=== PATIENT | female | born 1990 | race Two or more races ===

== ENCOUNTER 2016-05-01 22:18 | Emergency (ER) | payer OTHER ==
[~2016-05-01] VITALS: Ht 154.9 cm; Wt 108.9 kg
--- NOTE | 2016-05-01 22:33 | PHYS DOC ---
Past Medical History Past Medical History: Anxiety, Migraines Past Surgical History: No Surgical History Alcohol Use: None Drug Use: None Adult General Chief Complaint Chief Complaint: MULTIPLE COMPLAINTS HPI HPI Patient is a 26 year old female who presents with multiple complaints. Patient reports that since yesterday she has been having a migraine. She reports throbbing pain worse on the R side of her head that is worse with bright lights. Has h/o similar migraines in past. She has tried sumatriptan at home with insufficient relief. In addition, she reports pain and swelling in her R axilla that started on ; no clear inciting or mitigating factors. No prior similar episodes for this. No drainage from site. No fever. Review of Systems Review of Systems Constitutional: Denies fever or chills Eyes: Denies change in visual acuity or eye pain HENT: Denies nasal congestion or sore throat Respiratory: Denies cough or shortness of breath Cardiovascular: Denies chest pain GI: Denies abdominal pain, nausea, vomiting, bloody stools or diarrhea : Denies dysuria or hematuria Musculoskeletal: Pain/swelling in R axilla Integument: Denies rash or skin lesions Neurologic: Migraine headache. Denies focal weakness or sensory changes Current Medications Current Medications Current Medications Medications (Trade) Dose Ordered Sig/Faina Start Time Stop Time Status Last Admin Dose Admin Acetaminophen/ Hydrocodone Bitart (Lortab 5/325) 1 tab 1X ONCE 05/01/16 23:45 05/01/16 23:46 DC 05/01/16 23:43 1 TAB Diphenhydramine HCl (Benadryl) 25 mg 1X ONCE 05/01/16 22:45 05/01/16 22:46 DC 05/01/16 23:33 25 MG Ketorolac Tromethamine (Toradol) 15 mg 1X ONCE 05/01/16 22:45 05/01/16 22:46 DC 05/01/16 23:31 15 MG Lidocaine/Sodium Bicarbonate (Buffered Lidocaine 1%) 20 ml 1X ONCE 05/01/16 22:45 05/01/16 22:46 DC 05/01/16 23:06 20 ML Prochlorperazine Edisylate (Compazine) 10 mg 1X ONCE 05/01/16 22:45 05/01/16 22:46 DC 05/01/16 23:35 10 MG Sodium Chloride (Iv Sodium Chloride 0.9% 1000ml Bag) 1,000 ml @ 1,000 mls/hr Q1H 05/01/16 22:45 05/01/16 23:44 DC 05/01/16 23:00 1,000 MLS/HR Allergies Allergies Allergies Coded Allergies Type Severity Reaction Last Updated Verified No Known Drug Allergies 07/24/13 No Physical Exam Physical Exam Constitutional: Well developed, well nourished, no acute distress, non-toxic appearance HENT: Normocephalic, atraumatic, bilateral external ears normal Eyes: PERRL, EOMI, conjunctiva normal, no discharge Neck: Normal range of motion, no stridor Cardiovascular: Heart rate normal, regular rhythm, no murmur Lungs & Thorax: Bilateral breath sounds clear to auscultation Abdomen: Bowel sounds normal, soft, non-distended, no TTP Skin: Warm, dry, no erythema, no rash Extremities: No obvious deformity, no edema. Swelling, TTP in R axilla; no drainage, no erythema Neurologic: Alert and oriented X 3, GCS 15, CN II-XII grossly intact, strength intact and symmetrical throughout, sensation to light touch intact throughout Current Patient Data Vital Signs Vital Signs Date Time Temp Pulse Resp B/P Pulse Ox O2 Delivery O2 Flow Rate FiO2 05/01/16 23:43 16 99 Room Air 05/01/16 22:26 98.4 104 157/70 98.4 Lab Values Laboratory Tests Test 05/01/16 23:26 Urine Test Negative (NEG) EKG EKG [] Radiology/Procedures Radiology/Procedures [] Course & Med Decision Making Course & Med Decision Making Pertinent Labs and Imaging studies reviewed. (See chart for details) Patient is 26 year old female who presents with migraine and pain in R axilla. Will give migraine cocktail for relief of MCGILL. R axilla pain appears due to hidradenitis. Urine preg screen ordered. As no drainage from axilla and no prior episodes, will only attempt needle aspiration due to concern for cosmesis if I&D attempted with scalpel. I was unable to aspirate significant fluid from the site; therefore will take conservative approach at this time and will treat with warm compresses, abx, pain meds. Patient given instructions for follow up. She does report complete resolution of her migraine after IVF and migraine cocktail. Patient discharged home with rx for abx and pain meds, instructions for follow up, return precautions. Dragon Disclaimer Dragon Disclaimer This electronic medical record was generated, in whole or in part, using a voice recognition dictation system. Departure Departure Impression: Primary Impression: Migraine Additional Impression: Hidradenitis axillaris Disposition: HOME, SELF-CARE Condition: STABLE Referrals: NON,STAFF (PCP) Patient Instructions: Hidradenitis Suppurativa, Sweat Gland Abscess, Migraine Headache Additional Instructions: Thank you for allowing us to provide care today in the Emergency Department. Take the provided medication as directed. Use caution when taking this medication as it can make you drowsy. Use warm compresses on your underarm several times per day as we discussed. Schedule a follow up appointment with your primary care doctor. Return promptly to the Emergency Department if you develop any new or concerning symptoms. Scripts Amoxicillin/Potassium Clav (Augmentin 875-125 Tablet)1 Each Tablet1 Tab PO BID # 14 TAB Prov:CONNIE CHURCH MD 05/02/16 Tramadol Hcl 50 Mg [id number] Mg PO Q6H PRN PAIN #15 TAB Prov:CONNIE CHURCH MD 05/02/16 Problem Qualifiers CONNIE CHURCH MD May 01, 2016 22:33
[2016-05-01] MEDS ORDERED: DIPHENHYDRAMINE 50 MG/ML VIAL IVP ONE (22:45)
[2016-05-01] MEDS ORDERED: LIDOCAINE 1% / SOD BICARB 8.4% 20 ML VIAL. IJ ONE (22:45)
[2016-05-01] MEDS ORDERED: IV NORMAL SALINE 1000ML BAG 1,000 ML IV SCH (22:45)
[2016-05-01] MEDS ORDERED: KETOROLAC 15 MG/ML VIAL. IV ONE (22:45)
[2016-05-01] MEDS ORDERED: PROCHLORPERAZINE 10 MG/2 ML VIAL. IV ONE (22:45)
[2016-05-01 23:31] LABS: NEG OBC UR NEG; POS OBC UR POS
[2016-05-01] MEDS ORDERED: HYDROCODONE/APAP 5/325MG TABLET. PO ONE (23:45)
[2016-05-02] MEDS ORDERED: AMOX1TAB61 PO (00:11)
[2016-05-02] MEDS ORDERED: TRAM50TA PO (00:11)
[2016-05-02 00:31] VITALS: BP 113/53
== END 2016-05-02 00:40 | disposition home or self-care (01) ==
LOC: ER 22:18
DX: G43.909 Migraine, unspecified, not intractable, without status migrainosus (principal); L73.2 Hidradenitis suppurativa; F41.9 Anxiety disorder, unspecified
CPT/HCPCS: 10021; 81025; 96361; 96374; 96375; 99284; J0780; J1200; J1885; J7030

== ENCOUNTER → 2016-05-19 | Outpatient (CLI) | payer OTHER ==
[2016-05-02 00:31] VITALS: BP 113/53
[~2016-05-19] MED LIST: AMOX1TAB61 PO; TRAM50TA PO
[2016-05-19 09:24] LABS: BASO % 1 % (0-3); EOS % 1 % (0-3); HEMATOCRIT 42.1 % (36.0-47.0); HEMOGLOBIN 13.8 g/dL (12.0-15.5); LYMPH # 2.6 x10^3/uL (1.0-4.8); LYMPH % 28 % (24-48); MEAN CORPUSCULAR HEMOGLOBIN 28 pg (25-35); MEAN CORPUSCULAR HGB CONC 33 g/dL (31-37); MEAN CORPUSCULAR VOLUME 85 fL (79-100); MONO % 6 % (0-9); NEUT % 64 % (31-73); PLATELET COUNT 285 x10^3/uL (140-400); RED BLOOD COUNT 4.96 x10^6/uL (3.50-5.40); RED CELL DISTRIBUTION WIDTH 13.5 % (11.5-14.5); WHITE BLOOD COUNT 9.2 x10^3/uL (4.0-11.0)
[2016-05-19 10:01] LABS: ALBUMIN 3.5 g/dL (3.4-5.0); ALBUMIN/GLOBULIN RATIO 0.8 (1.0-1.7); CALCIUM 8.9 mg/dL (8.5-10.1); CREATININE 0.7 mg/dL (0.6-1.0); TOTAL PROTEIN 8.1 g/dL (6.4-8.2)
[2016-05-19 10:02] LABS: GFR 102.8; POTASSIUM 4.2 mmol/L (3.5-5.1); TOTAL BILIRUBIN 0.2 mg/dL (0.2-1.0)
[2016-05-19 18:11] LABS: PROLACTIN 10.6 ng/mL (4.8-23.3)
[2016-05-22 11:14] LABS: % FREE TESTOSTERONE 2.59 % (0.50-2.80); TESTOSTERONE FREE 0.67 ng/dL (0.10-0.85); TESTOSTERONE TOTAL 26 ng/dL (8-48)
== END | disposition home or self-care (01) ==
LOC: LAB 08:58
PROVIDERS: ATTEND Specialist
DX: N93.9 Abnormal uterine and vaginal bleeding, unspecified (principal)
CPT/HCPCS: 36415; 80053; 83001; 83002; 83036; 84146; 84402; 84403; 84443; 85027

== ENCOUNTER 2016-06-02 09:03 | Day surgery (SDC) | payer OTHER ==
[~2016-06-02 09:03] MED LIST changes: +FENTANYL PF 100 MCG/2 ML VIAL. IV PRN; +HYDROMORPHONE 2 MG/ML VIAL. IV PRN; +IV RINGERS,LACTATED 1000ML 1,000 ML IV SCH; +LIDOCAINE 1% 1 ML SYRINGE. ID PRN; +LORA0.5T PO; +MORPHINE SULFATE 2 MG/ML DISP.SYRIN. IV PRN; +ONDANSETRON PF 4 MG/2 ML VIAL. IV PRN; +PROCHLORPERAZINE 10 MG/2 ML VIAL. IV PRN
[2016-06-02] MEDS ORDERED: CEFAZOLIN 2GM PREMIX 50 ML IV PRN (10:15)
[2016-06-02] MEDS ORDERED: DEXAMETHASONE SOD PHOS 20 MG/5 ML VIAL. ONE (10:20)
[2016-06-02] MEDS ORDERED: PROPOFOL 20 ML IV ONE (10:20)
[2016-06-02] MEDS ORDERED: MIDAZOLAM HCL 2 MG/2 ML VIAL. ONE (10:21)
[2016-06-02] MEDS ORDERED: ONDANSETRON PF 4 MG/2 ML VIAL. ONE (10:21)
[2016-06-02] MEDS ORDERED: LIDOCAINE 2% 100 MG/5 ML DISP.SYRIN. ONE (10:21)
[2016-06-02] MEDS ORDERED: FENTANYL PF 250 MCG/5 ML VIAL. ONE (10:21)
[2016-06-02] MEDS ORDERED: ROCURONIUM 50 MG/5 ML VIAL. ONE (10:22)
--- NOTE | 2016-06-02 10:42 | PDOC1 ---
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 unremitting to OCP and NSAIDS Past Medical History Cardiovascular: No pertinent hx Pulmonary: No pertinent hx GI: No pertinent hx Heme/Onc: No pertinent hx Hepatobiliary: No pertinent hx Psych: No pertinent hx Infectious disease: No pertinent hx ENT: No pertinent hx Renal/: No pertinent hx Endocrine: No pertinent hx Dermatology: No pertinent hx Grav: 2 Para: 0 Social History Smoke: No ALCOHOL: none Drugs: None Current Medications Current Medications Current Medications Ondansetron HCl (Zofran) 4 mg PRN Q6HRS PRN IV Nausea; Start 06/02/16 at 07:00; Stop 06/02/16 at 23:00 Fentanyl Citrate (Fentanyl 2ml Vial) 25 mcg PRN Q5MIN PRN IV MILD PAIN; Start 06/02/16 at 07:00; Stop 06/02/16 at 23:00 Fentanyl Citrate (Fentanyl 2ml Vial) 50 mcg PRN Q5MIN PRN IV MODERATE PAIN; Start 06/02/16 at 07:00; Stop 06/02/16 at 23:00 Morphine Sulfate 1 mg 1 mg PRN Q10MIN PRN IV SEVERE PAIN; Start 06/02/16 at 07: 00; Stop 06/02/16 at 23:00 Lactated Ringer's (Iv Lactated Ringers) 1,000 ml @ 0 mls/hr Q0M IV ; Start 06/02 at 07:00; Stop 06/02/16 at 18:59 Lidocaine HCl 2 ml 1X PRN PRN ID IV START; Start 06/02/16 at 07:00; Stop at 23:00 Hydromorphone HCl (Dilaudid) 0.5 mg PRN Q10MIN PRN IV SEVERE PAIN, Second choice; Start 06/02/16 at 07:00; Stop 06/02/16 at 23:00 Prochlorperazine Edisylate 5 mg 5 mg PACU PRN PRN IV NAUSEA; Start 06/02/16 at 07:00; Stop 06/02/16 at 23:00 Cefazolin Sodium/ Dextrose 50 ml @ 100 mls/hr 1X PERIOP PRN IV SEE COMMENTS; Start 06/02/16 at 10:15 Propofol (Diprivan) 20 ml @ As Directed STK-MED ONCE IV ; Start 06/02/16 at 10:20 ; Stop 06/02/16 at 10:21; Status DC Dexamethasone Sodium Phosphate (Decadron) 20 mg STK-MED ONCE .ROUTE ; Start 06/02 at 10:20; Stop 06/02/16 at 10:21; Status DC Ondansetron HCl (Zofran) 4 mg STK-MED ONCE .ROUTE ; Start 06/02/16 at 10:21; Stop 06/02/16 at 10:22; Status DC Lidocaine HCl 100 mg STK-MED ONCE .ROUTE ; Start 06/02/16 at 10:21; Stop 06/02/16 at 10:22; Status DC Midazolam HCl (Versed) 2 mg STK-MED ONCE .ROUTE ; Start 06/02/16 at 10:21; Stop 06/02/16 at 10:22; Status DC Fentanyl Citrate (Fentanyl 5ml Vial) 250 mcg STK-MED ONCE .ROUTE ; Start at 10:21; Stop 06/02/16 at 10:22; Status DC Rocuronium [place] (Zemuron) 50 mg STK-MED ONCE .ROUTE ; Start 06/02/16 at 10:22 ; Stop 06/02/16 at 10:23; Status DC Active Scripts Active Reported Lorazepam 0.5 Mg Tablet 0.5 Mg PO PRN PRN Allergies Allergies: Coded Allergies: No Known Drug Allergies (Unverified , 06/02/16) ROS Gastrointestinal: Yes Nausea Physical Exam General: Alert, Oriented X3, Cooperative, No acute distress HEENT: PERRLA Lungs: Clear to auscultation, Normal air movement Heart: RRR Breasts: Normal, Rt breast nml w/o mass, Lt breast nml w/o mass, Nipples normal Abdomen: Soft, Other (superpubic TTP) Rectal Exam: deferred PELVIC: Nml ext genitalia, Nml ext vulva, Nml ext vagina, Nml ext cervic, Tenderness Extremities: No clubbing, No cyanosis, No edema, Normal pulses, No tenderness/ swelling Skin: No rashes, No breakdown, No significant lesion Psych/Mental Status: Mental status NL, Mood NL Vitals Vitals Vital Signs Date Time Temp Pulse Resp B/P Pulse Ox O2 Delivery O2 Flow Rate FiO2 06/02/16 09:24 97.8 72 20 131/70 98 Room Air 97.8 VTE Prophylaxis Ordered VTE Prophylaxis Devices: Yes VTE Pharmacological Prophylaxi: No Assessment/Plan Assessment/Plan AUB CPP Dx hysteroscopy with DX laparoscopy D nad C with true clear CHARBEL WATSON MD Jun 02, 2016 10:42
[2016-06-02] MEDS ORDERED: BUPIVAC MPF-EPI 0.5%-1:200000 30 ML VIAL. ONE (11:06)
[2016-06-02] MEDS ORDERED: GLYCOPYRROLATE 1 MG/5 ML VIAL. ONE (12:27)
[2016-06-02] MEDS ORDERED: NEOSTIGMINE METHYLSULFATE 5 MG/5 ML SYRINGE. ONE (12:27)
[2016-06-02] MEDS ORDERED: SEVOFLURANE 61 TO 120 MINUTES. IH ONE (12:31)
--- NOTE | 2016-06-02 12:56 | PDOC ---
BRIEF OPERATIVE NOTE Pre-Op Diagnosis AUB CPP Post-Op Diagnosis Same Procedure Performed Dx lap Dx hyst D and C Surgeon Nishi Anesthesia Type: General Blood Loss 20cc Specimens Obtained EMB Findings Dictated Complications None CHARBEL WATSON MD Jun 02, 2016 12:56
[2016-06-02] MEDS ORDERED: OXYC-323 PO (12:58)
[2016-06-02] MEDS ORDERED: NAPR500T PO (12:58)
[2016-06-02 13:04] LABS: NEG OBC UR NEG; POS OBC UR POS
[2016-06-02] MEDS: FENTANYL PF 100 MCG/2 ML VIAL. IV PRN ×2 (13:11→13:25)
[2016-06-02] MEDS ORDERED: OXYCODONE/APAP 5/325 TABLET. PO PRN (13:30)
[2016-06-02 14:05] VITALS: BP 137/72
--- NOTE | 2016-06-03 06:23 | OP ---
DATE OF SURGERY: 06/02/2016 PREOPERATIVE DIAGNOSIS: Abnormal uterine bleeding, chronic pelvic pain. POSTOPERATIVE DIAGNOSES: 1. Abnormal uterine bleeding, chronic pelvic pain. 2. Large septated fundal uterus. PROCEDURES: Diagnostic laparoscopy with diagnostic hysteroscopy with D and Leslie. SURGEON: Taco Almodovar M.D. GENERAL MILLING SUPERINTENDENT: None. ANESTHESIA: General. ESTIMATED BLOOD LOSS: Less than 100 mL. FLUIDS: Crystalloid. SPECIMENS: Endometrial curettings. COMPLICATIONS: None. CONDITION: Stable. DESCRIPTION OF PROCEDURE: After risks, benefits, indications, alternatives discussed in detail with the patient, the patient brought to the OR theater, placed in a dorsolithotomy position in [facility]. After adequate general anesthesia, the patient prepped and draped in usual sterile manner. The uterine manipulator was placed in the vaginal vault without any difficulties. Attention was then turned to the anterior abdominal wall. A small vertical infraumbilical incision made sharply with scalpel. Through this incision, a Visiport 5 mm trocar was placed without any difficulty. Pneumoperitoneum was created. Left lateral trocar was placed adjacent to the infraumbilical trocar. The pelvic contents were visualized. The tubes appeared normal. The uterus had a flat fundal appearance; however, there was noted to be 2 separate cornu on external visualization. Remaining posterior cul-de-sac, anterior cul-de-sac, bladder flap, broad ligaments, round ligaments, and the uterosacral ligaments all appeared normal. The laparoscopic instrumentations were removed. Pneumoperitoneum was allowed to dissipate. Attention was then turned to the hysteroscopic part of the procedure. The uterine manipulator was removed from the cervix, single tooth tenaculum remained, posterior weighted speculum was placed. A hysteroscope was placed through the cervical os without any difficulties. Both cornu were identified. There appeared to be a large V-shaped septum in the middle more consistent with a large septated uterus than a bicornuate uterus. Secondary to the thickness of the septum, the instrumentation currently available at the hospital was not able to pick any part of the septum down at this time. Sharp curettage was then performed for endometrial sample. The procedure was terminated. All instrumentations were removed. Single-tooth tenaculum was removed. Puncture sites were hemostatic. The vaginal vault was wiped free of any blood or tissue. The endometrial sample was placed on top of sponge and had been handed off the operative field. Procedure was terminated. Attention was then turned to the anterior abdominal wall, was regowned and gloved. The incisions were re-approximated after the trocar sleeves were removed, infiltrated with 0.5% Marcaine with epinephrine. Sponge, needle and instrument counts were correct x 2 per nursing staff, patient went to the postop anesthesia recovery in stable and good condition. TACO ALMODOVAR MD DR: HALLEY/kay JOB#: [id number] / [id number]
== END 2016-06-02 14:26 | disposition home or self-care (01) ==
LOC: SURG 09:03
PROVIDERS: ATTEND Specialist
DX: N93.8 Other specified abnormal uterine and vaginal bleeding (principal); F41.9 Anxiety disorder, unspecified; F32.9 Major depressive disorder, single episode, unspecified; Z72.89 Other problems related to lifestyle
CPT/HCPCS: 49320; 58558; 81025; C1769; J0690; J1100; J2250; J2405; J2704; J2710; J3010; J3490; J7030; J7120